=== PATIENT | female | born 1970 | race Caucasian/White ===

== ENCOUNTER 2016-08-29 14:00 | Inpatient (IN) | payer BC, OTHER ==
[~2016-08-29] VITALS: Ht 165.1 cm; Wt 69.0 kg
--- NOTE | ~2016-08-29 | DS ---
PATIENT'S NAME: ANNABELLE CASTELLANOS [facility] AGE: 45 Y [address] ROOM: [address] [address] LOCATION: [facility] [place] ADMIT DATE: 08/29/2016 Discharge Summary DISCHARGE DATE: 09/04/2016 FAMILY PHYSICIAN: Anna Mcclure ATTENDING PHYSICIAN: Maday Harrison FINAL DIAGNOSES: 1. Hypercalcemia. 2. Acute kidney injury. 3. Hyponatremia. 4. Elevated blood pressure. 5. Anxiety and depression. CONSULTANTS ON THE CASE: Dr. Barron with Nephrology. PROCEDURES: The patient had a renal biopsy done by Dr. Mcgarry on 09/03/2016. HOSPITAL COURSE: Please see details of admission in H and P by Dr. Harrison. Briefly, the patient was admitted with hypercalcemia and acute kidney injury. She was started on IV fluids with normal saline. Serum protein electrophoresis and urine protein electrophoresis were ordered. The patient was checked for her ionized calcium level and vitamin D level. She was given calcitonin 4 units/kg subcu on admission and 1 dose of Solu-Medrol. Telemetry was placed secondary to the hypercalcemia. Dr. Barron was able to see the patient on the 30, checked parathyroid hormone, and Johan levels. CT of the chest was done without contrast, and renals were ordered daily. On hospital day #2, the patient was feeling a little bit better. She was able to eat some breakfast, but did have significant nausea. Phenergan was utilized for this. Calcium level is down to 12.2 and down to 11.5 on subsequent days. IV fluids were changed to decrease. The patient did have some loose stools and C. diff was checked, which was negative. Potassium was low and was replaced efficiently. Dr. Barron did order a CT-guided renal biopsy on the 2nd, this was able to be done on the 3rd. The patient was given amlodipine for elevated blood pressures and they did show positive results. On the 3rd, we gave her more calcitonin and stimulated her bowels. She did have good response. Calcium level jumped back up to 13.1, but then on the day of discharge it was back down to 11.7. Urine protein electrophoresis showed tubular type proteinuria. No Bence-Soares protein. The patient's magnesium was replaced and it was felt that the patient could safely be discharged with followup with Dr. Barron pending the biopsy results, which subsequently needed sending to [place]. The patient was able to verbalize understanding the discharge instructions and was agreeable to the condition. DIAGNOSTICS: CT scan of the chest without contrast was normal. Retroperitoneal ultrasound on 09/01/2015 was also normal. Single view of the PATIENT'S NAME: ANNABELLE CASTELLANOS [facility] AGE: 45 Y [address] ROOM: [address] [address] LOCATION: [facility] [place] ADMIT DATE: 08/29/2016 Discharge Summary DISCHARGE DATE: 09/04/2016 FAMILY PHYSICIAN: Anna Mcclure ATTENDING PHYSICIAN: Maday Harrison A chest was unremarkable. LABORATORY DATA: The patient's ionized calcium on 08/29 was 8.1. On admission sodium was 145, potassium 3.4, chloride 107, bicarb 29, glucose 115, calcium 14.2, BUN 41, creatinine 3.4. TSH and free T4 were within normal limits. The patient's calcium trended down to 11.3, back up to 13.1, and again down to 11.7 on discharge. Creatinine was 3.4 on the day of admission and trended down to 2.6 on the day of discharge. Quantitative hCG was negative. On admission, white blood cell count was 5.8, hemoglobin 10.9, hematocrit 33.2, platelets 258. These values remained stable throughout her stay. Urinalysis was within normal limits. Urine sodium was 93, urine calcium was 14, urine urea was 165, and urine creatinine was 17. Urine culture was negative at 2 days. DISCHARGE INSTRUCTIONS: The patient is discharged home. Diet: As tolerated. Activity: No heavy lifting greater than 5 pounds for 7 days. The patient will follow up with Dr. Barron in his office to make a followup appointment once the renal biopsy is back. The patient will follow up with Anna Cruz in 5 days that puts it on Sunday 09/10 at 11:15 a.m. DISCHARGE MEDICATIONS: 1. Norvasc 2.5 mg p.o. daily. 2. Colace 100 mg twice daily. 3. Lamictal 300 mg at bedtime. 4. Zyprexa 5 mg at bedtime. 5. Inderal 20 mg at bedtime. 6. Tylenol 1000 mg every 6 hours as needed. 7. Effexor 150 mg everyday. 8. Zantac 150 mg daily as needed. 9. Zofran 4 mg every 4 hours as needed. 10. Protonix 40 mg daily. We do appreciate participating in this patient's care. Thank you very much for the ability to serve her while hospitalized at [facility]. Time spent coordinating details of discharge was 29 minutes of which was spent coordinating with consulting physicians, care management, and completion of medication reconciliation and education to the patient and family. LIAM LEDESMA FOR MADAY HARRISON MD EBONY/modl PATIENT'S NAME: ANNABELLE CASTELLANOS [facility] AGE: 45 Y [address] ROOM: [place] [address] LOCATION: [facility] [place] ADMIT DATE: 08/29/2016 Discharge Summary DISCHARGE DATE: 09/04/2016 FAMILY PHYSICIAN: Anna Mcclure ATTENDING PHYSICIAN: Maday Harrison /[id number] d: 09/05/16820 t: 09/16/16 1947, DISCHARGE SUMMARY
--- NOTE | ~2016-08-29 | CON ---
PATIENT'S NAME: ANNABELLE CASTELLANOS [place] AGE: 45 Y [address] ROOM: [address] [address] LOCATION: [facility] [place] ADMIT DATE: 08/29/2016 Consultation DISCHARGE DATE: FAMILY PHYSICIAN: Anna Mcclure ATTENDING PHYSICIAN: MADAY LOO DATE OF CONSULTATION: 08/30/2016 REFERRING PHYSICIAN: Jacques Barron REQUESTING PHYSICIAN: HospitalistMaday MD. REASON FOR CONSULTATION: Hypercalcemia and acute kidney injury. HISTORY OF PRESENT ILLNESS: The patient is a 45-year-old white female with a history of only anxiety, depression, and nephrolithiasis. She was admitted to the hospital because of abnormal labs. The patient was noted to have a creatinine up to 3.2 and a calcium of 18.8 at the physician's office. She has not been feeling well for the last 7 days. She has been tired. She has nausea, vomiting, and constipation. She does have a history of constipation off and on. She also thinks she has lost 5-10 pounds. She was thirsty, she was drinking about 90 ounces of liquid in 24 hours. On admission to the hospital, she received intravenous volume as well as calcitonin. I have been asked to see her because she continues to have elevated calcium and creatinine. REVIEW OF SYSTEMS: GENERAL: She denies any fever, chills, or rigors. She is tired and she lost about 5-10 pounds in the last one week. HEENT: Denies any sore throat. She has dry lips. HEART: Denies any chest pain, dyspnea on exertion. RESPIRATORY: Denies any cough or sputum production. GI: Poor appetite and constipation. : Denies any dysuria. Has a history of nephrolithiasis. MUSCULOSKELETAL: Denies any joint pain or swelling. SKIN: Denies any rash or pruritus. IMMUNOLOGIC: Denies any allergies or hay fever. LYMPHATICS: Denies any lymph node enlargement. HEMATOLOGIC: Denies any easy bruising. ENDOCRINE: Denies any heat or cold intolerance. PSYCHIATRY: Denies any sadness, crying spells, poor concentration, or panic attack. PAST MEDICAL HISTORY: PATIENT'S NAME: ANNABELLE CASTELLANOS [place] AGE: 45 Y [address] ROOM: [address] [address] LOCATION: [facility] [place] ADMIT DATE: 08/29/2016 Consultation DISCHARGE DATE: FAMILY PHYSICIAN: Anna Mcclure ATTENDING PHYSICIAN: MADAY LOO Anxiety, depression, and nephrolithiasis. PAST SURGICAL HISTORY: Hysterectomy, cholecystectomy, history of shockwave lithotripsy in April 2016. SOCIAL HISTORY: She is . 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 She lives by herself in [place]. She has no history of tobacco use. She has used cannabis 2-3 times a week. She does not drink any alcohol. FAMILY HISTORY: Strong family history of malignancy, mother had breast cancer. Grandfather had lung cancer. Her brother committed suicide. ALLERGIES: NO KNOWN DRUG ALLERGIES. PRESENT MEDICATIONS: Home medications did include, 1. Tylenol p.r.n. 2. Lamictal 300 mg at bedtime. 3. Zyprexa 5 mg at bedtime. 4. Zofran 4 mg q.4 hours as needed. 5. Propranolol 20 mg at bedtime. 6. Zantac 150 mg as needed. 7. Effexor 150 mg in the morning. PHYSICAL EXAMINATION: GENERAL APPEARANCE: A 45-year-old, well-built white female, sitting up in the hospital bed, not in acute distress. VITAL SIGNS: Temperature 98.4, pulse 93, systolic blood pressure of 147, diastolic 84, respiratory rate of 18. HEENT: Head is normocephalic. Pupils are round and equal. Normal eyelids and conjunctivae. Oral cavity, clear. Loss of tooth. NECK: Trachea is central. No thyromegaly. No bruit. HEART: Sounds are audible in all the areas without any gallop or murmur. There is no peripheral rub. Pulses regular in rhythm. LUNGS: Bilaterally clear to auscultate. No intercostal retraction. ABDOMEN: Soft, nontender. Could not palpate the liver or spleen. EXTREMITIES: She has no clubbing or cyanosis. SKIN: No sign of vasculitis. LYMPHATICS: I did not examine lymphatics. HIGHER PSYCHIATRIC FUNCTIONS: She has normal speech and memory. PATIENT'S NAME: ANNABELLE CASTELLANOS [place] AGE: 45 Y [address] ROOM: [id number] [place], [place] [address] LOCATION: [facility] [place] ADMIT DATE: 08/29/2016 Consultation DISCHARGE DATE: FAMILY PHYSICIAN: Anna Mcclure ATTENDING PHYSICIAN: MADAY LOO LABORATORY DATA: Hemoglobin 10.6, hematocrit 31.9, platelet count 259, WBC 5.1, glucose 143, BUN 41, creatinine 3.0. Sodium 146, potassium 3.9, chloride 111, bicarb 27, calcium 12.2, albumin 2.9. Estimated GFR 17 mL/minute. ASSESSMENT: 1. Hypercalcemia, etiology unclear, but we need to rule out possibilities of malignancy. Chest x-ray does not show any nodules. She had a CT scan of the abdomen and pelvis last year with contrast and there was no mass in that. The patient has not had a colonoscopy, but she reports that she had a mammogram last year. She does have family history of breast cancer in her mother. The patient was not taking Tums. She does take a multivitamin. Her calcium level of 18.8 was not likely due to dehydration. 2. Acute kidney injury. Creatinine went up to 3+, now it is down to 3.0. Most likely this is because of hypercalcemia and volume loss with excessive diuresis. Urinalysis does not show any proteinuria. Her vitamin D level is pending. PTH is within normal limits. Her constipation and nephrolithiasis probably also related to her hypercalcemia. She possibly was also having hypercalciuria. 3. Anxiety and depression. 4. Nephrolithiasis. PLAN: I agree with IV volume, also agree with calcitonin. The patient does have nausea probably from calcitonin and she will need Zofran p.r.n. Calcitonin does not feel to be waxed within the next 48 hours. I will avoid any alendronate at this time. We will order a PTHRP. We will look further report for her previous mammograms. Serum protein and immunoelectrophoresis has been ordered. I will check an KESHIA level and will follow her renal function closely. M MD ANOOP GAO/sangita /[id number] CC: LIAM Valverde d: 08/30/16 1429 t: 09/19/16 1547, CONSULTATION REPORT
--- NOTE | ~2016-08-29 | HP ---
PATIENT'S NAME: ANNABELLE CASTELLANOS [facility] AGE: 45 Y [address] ROOM: [address] [address] LOCATION: [facility] [place] ADMIT DATE: 08/29/2016 History & Physical DISCHARGE DATE: FAMILY PHYSICIAN: Anna Mcclure ATTENDING PHYSICIAN: MADAY HARRISON DATE OF SERVICE: 08/29/2016 CHIEF COMPLAINT: Hypercalcemia and acute kidney injury. HISTORY OF PRESENT ILLNESS: This is a 45-year-old female, who has been experiencing lightheadedness, dizziness, nausea, vomiting, and constipation over the last 6 days. She also associates a weight loss of approximately 5-10 pounds as well as some hot flashes, which she has not had since her hysterectomy. She has taken Tylenol without relief. She has had poor oral intake, both with liquid and nutritionally. She went to her primary care provider's office today, where she was found to have a creatinine of 3.2 and a calcium of 18.8. Her only past medical history includes anxiety and depression, which is well controlled on her current medications. She does use cannabis 2-3 times a week. She denies any syncopal-like episodes. She denies any visual changes. She denies any chest pain, palpitations, or history of heart murmurs. She denies any shortness of breath or cough or history of any chronic lung disease. She does complain of the nausea and vomiting, but is constipated and has not had a bowel movement for the last few days. She denies any melena in her stool. She denies any urinary complaints such as frequency, burning, or painfulness upon urination. She has not had her period since having a hysterectomy. She denies any extremity pain or weakness on either side of her body. She denies any numbness or tingling or sensory changes. REVIEW OF SYSTEMS: A 10-point review of systems was completed and is negative other than mentioned above in the HPI. PAST MEDICAL HISTORY: Anxiety and depression. PAST SURGICAL HISTORY: 1. Hysterectomy. 2. Cholecystectomy. 3. History of renal stones, requiring shockwave lithotripsy on 05/01/2016. SOCIAL HISTORY: PATIENT'S NAME: ANNABELLE CASTELLANOS [facility] AGE: 45 Y [address] ROOM: [address] [place], [place] [address] LOCATION: [facility] [place] ADMIT DATE: 08/29/2016 History & Physical DISCHARGE DATE: FAMILY PHYSICIAN: Anna Mcclure ATTENDING PHYSICIAN: MADAY HARRISON The patient is . She has 3 children, all of whom are living and healthy. She does live at home by herself with her dog and her cat. She does work for [employer], which is [employer] for last 3 years. She does admit to cannabis use 2-3 times a week. She denies any other illicit drug use. She denies any smoking history. She denies any alcohol use. FAMILY MEDICAL HISTORY: Her father had a stroke and is still living. Her mother had breast cancer and is still living. She had a brother, who committed suicide. Otherwise, reviewed and deemed noncontributory. ALLERGIES: PENICILLIN, UNKNOWN REACTION. MEDICATIONS: Home medication list reviewed: 1. Tylenol 1000 mg p.o. every 6 hours as needed for pain or fever. 2. Lamictal 300 mg p.o. every night at bedtime. 3. Zyprexa 5 mg p.o. every night at bedtime. 4. Zofran 4 mg p.o. every 4 hours as needed. 5. Propranolol 20 mg p.o. every night at bedtime. 6. Zantac 150 mg p.o. every day as needed. 7. Effexor 150 mg p.o. every morning. PHYSICAL EXAMINATION: VITAL SIGNS: Most recent vital signs show temperature of 98.2 orally, a pulse of 90, respiratory rate of 18, blood pressure 165/92, and oxygen of 94% on room air. Her weight is 70.10 kg with a BMI of 25.7. She is 5 feet 5 inches. GENERAL: This is a 45-year-old female, who looks and appears her stated age. She is a . She is calmly resting in bed and is cooperative with examination. HEENT: Her head is normocephalic and atraumatic. Eyes: Extraocular movements are intact. Her pupils are equal, round, and reactive to light and accommodation at 3+. She has no maxillary or frontal tenderness. Oropharynx is visualized and appears to be dry mucous membranes. She has no redness in the posterior pharynx or drainage. NECK: Supple. I do not note any thyromegaly or lymphadenopathy. CHEST: Shows equal rise and symmetric expansion. Her lungs are clear throughout all nava. There is no wheeze or adventitious sounds noted. HEART: Regular rate and rhythm without any gallop or murmur. S1, S2 present. No murmurs noted. No pedal edema. Good 2+ pulses bilaterally and equal. ABDOMEN: Soft, round, nontender, and nondistended. No organomegaly appreciated. Bowel sounds heard through all four present. : Deferred. PATIENT'S NAME: ANNABELLE CASTELLANOS [facility] AGE: 45 Y [address] ROOM: [place] [address] LOCATION: [facility] [place] ADMIT DATE: 08/29/2016 History & Physical DISCHARGE DATE: FAMILY PHYSICIAN: Anna Mcclure ATTENDING PHYSICIAN: MADAY HARRISON EXTREMITIES: Equal in size. She has soft calves. She is able to move all 4 extremities without any difficulty. NEUROLOGIC: She is hyperreflexic at 3+ bilaterally in both her upper extremities and lower extremities. LABORATORY DATA: Laboratory review from outside facility shows calcium 18.8, a BUN of 39, a creatinine of 3.2, and a GFR of 16. Her sodium was 139, potassium of 4.0, chloride of 97, CO2 of 34, anion gap of 8. TSH is 0.815. ASSESSMENT AND PLAN: Again, this is a 45-year-old female, who has: 1. Acute kidney injury, partially secondary to poor oral intake. We will start IV fluids with a bolus and fluids to follow and repeat labs to confirm and carefully consider renal ultrasound. 2. Hypercalcemia. We will get further labs to confirm the potential diagnosis to include a parathyroid hormone and vitamin D, 25-OH, TSH, free T4, and start IV fluids for correction and carefully consider calcitonin. 3. Hyperreflexia, secondary to hypercalcemia. 4. Anxiety and depression, well controlled on her home medication regimen. We would continue use of her Effexor, Lamictal, and Zyprexa. 5. Cannabis use. Cessation education was provided to the patient. 6. DVT prophylaxis. To mobilize and use pneumatic compression devices. 7. Full-code status. Above line of management was done in collaboration with further recommendations forthcoming from Dr. Maday Harrison. The condition of the patient is stable. All questions were answered with statements of understanding. CHANTAL PILLAI APRN, APRN FOR MD JORGE MOORE/modl /[id number] D: 55 HISTORY & PHYSICAL
[~2016-08-29 14:00] MED LIST: EFFEXOR XR150 MG PO; ELMIRON100 MG PO; INDERAL20 MG PO; LAMICTAL150 MG PO; NORCO 5-325 TA1 EACH PO; ZANTAC (NON-FO150 MG PO; ZOVIA 1-35E TA1 EACH PO; ZYPREXA5 MG PO
[2016-08-29] MEDS ORDERED: ZOFRAN4 MG PO (14:51)
[2016-08-29] MEDS ORDERED: TYLENOL EXTRA500 MG PO (14:52)
--- NOTE | 2016-08-29 15:23 | NUR ---
Pt is 45 y/o female admit for acute kidney injury for hospitalist. Pt alert and oriented x3. Resides at home by herself. Hx migraines,gerd,heartburn, ulcer,hayfever,sinus problems,kidney stones,frequent UTI,depression,anxiety, bipolar,smokes pot at least 3x's/week. Pt has had a headache recently and vertigo for the past week. She states she just didn't feel good. She drinks large amts of water and states she voids frequently. She saw her this am and had lab and was then called later to check in to hospital.
--- NOTE | 2016-08-29 18:54 | NUR ---
Significant event: Patient is alert and oriented. VSS. ON room air. IV to left forearm, with fluids running. Is independent in ambulation. Regular diet. Renal ultrasound tomarrow. Complains of some midepigastric pain. Cooperative with cares.
[2016-08-29 20:21] LABS: BASOPHIL % 0.2 %; HEMATOCRIT 33.2 % (33.0-46.0); HEMOGLOBIN 10.9 g/dL (10.0-15.0); IMMATURE GRANULOCYTE % 0.2 %; LYMPHOCYTE % 34.8 %; MCH 28.8 pg (27.0-34.0); MCHC 32.8 gm/dL (32.0-36.5); MCV 87.6 fl (83.0-98.0); MONOCYTE # 0.9 K/uL (0.0-1.0); MONOCYTE % 15.2 %; MPV 8.8 fl (9.4-12.4); NEUTROPHIL # (ANC) 2.9 K/uL (1.8-7.8); NEUTROPHIL % 49.6 %; NRBC % 0 /100WBC (0-0.00); PLATELET COUNT 258 K/uL (150-450); RBC 3.79 M/uL (3.50-5.50); RDW-CV 12.8 % (11.9-14.6); WBC 5.8 K/uL (4.0-11.0)
[2016-08-29 20:44] LABS: ALBUMIN 2.9 gm/dL (3.5-5.0); ANION GAP 12.4 (10.0-19.0); CREATININE 3.4 mg/dL (0.5-1.1); POTASSIUM 3.4 mMol/L (3.7-5.1); TOTAL BILIRUBIN 0.3 mg/dL (0.0-1.5); TOTAL PROTEIN 6.1 g/dL (6.0-8.4)
[2016-08-29 20:56] LABS: CALCIUM 14.2 mg/dL (8.5-10.5)
[2016-08-30 00:30] LABS: BILIRUBIN URINE NEGATIVE (NEGATIVE); BLOOD URINE NEGATIVE /UL (NEGATIVE); COLOR URINE COLORLESS (YELLOW); GLUCOSE URINE NEGATIVE (NEGATIVE); KETONE URINE NEGATIVE (NEGATIVE); LEUKOCYTES URINE NEGATIVE /UL (NEGATIVE); NITRITE URINE NEGATIVE (NEGATIVE); PROTEIN URINE NEGATIVE (NEGATIVE); SPEC GRAVITY URINE 1.015 (1.003-1.035); TURBIDITY URINE CLEAR (CLEAR); UROBILINOGEN URINE NORMAL (NORMAL)
--- NOTE | 2016-08-30 03:45 | NUR ---
SIGNIFICANT EVENT: Patient alert &oriented. Hypertensive (140's over 70's to 80's), other VSS on RA. Ate 50% of dinner but had about 800 emesis at approx 2030, no other emesis this shift. Zofran x1 at approx 1930. Calcium was 14.2 at 2000 draw. Calcitonin given x1. UA collected. Ad kym in room, does call for assist with unplugging IV. PIV to L)FA infusing NS at 150, had 2000 bolus prior to that. EKG shows NSR. NPO at [place] for Renal ultrasound to be done this morning. Pleasant and cooperative with cares.
[2016-08-30 05:24] LABS: HEMATOCRIT 31.9 % (33.0-46.0); HEMOGLOBIN 10.6 g/dL (10.0-15.0); IMMATURE GRANULOCYTE % 0.6 %; LYMPHOCYTE % 19.8 %; MCH 28.6 pg (27.0-34.0); MCHC 33.2 gm/dL (32.0-36.5); MCV 86.2 fl (83.0-98.0); MONOCYTE # 0.1 K/uL (0.0-1.0); MONOCYTE % 2.5 %; MPV 8.7 fl (9.4-12.4); NEUTROPHIL # (ANC) 3.9 K/uL (1.8-7.8); NEUTROPHIL % 77.1 %; NRBC % 0 /100WBC (0-0.00); PLATELET COUNT 259 K/uL (150-450); RDW-CV 12.7 % (11.9-14.6); WBC 5.1 K/uL (4.0-11.0)
[2016-08-30 05:44] LABS: ALBUMIN 2.9 gm/dL (3.5-5.0); POTASSIUM 3.9 mMol/L (3.7-5.1); TOTAL BILIRUBIN 0.3 mg/dL (0.0-1.5); TOTAL PROTEIN 6.2 g/dL (6.0-8.4)
[2016-08-30 05:45] LABS: ANION GAP 11.9 (10.0-19.0); CALCIUM 12.2 mg/dL (8.5-10.5)
--- NOTE | 2016-08-30 14:17 | NUR ---
Introduced self and care management services to patient. Lives in [place] alone, independent in everything at home. Denies concerns about going home on discharge, denies needs. Will follow.
--- NOTE | 2016-08-30 19:26 | NUR ---
Significant Event: Patient alert and oriented. Up to the bathroom with standby assist to void and patient states having 3 BM's for the shift. Renal US and CT scan of chest done. Patient states not having much of an appetite and c/o nausea at times. Zofran 4 mg orally given x 2 doses with the last at 1753 and Phenergan 12.5 mg orally given at 1433 with minimal relief. Tylenol 1000 mg given at 1622 for c/o a headache. Calcium level down to 12.2, Creatinine 3.0. Follow up:
--- NOTE | 2016-08-31 05:13 | NUR ---
Significant Event: PATIENT IS ALERT AND ORIENTED X4 AMBULATES INDEPENDENTLY IN ROOM AND HALLS. NO COMPLAINTS OF PAIN OR DISCOMFORT THIS SHIFT. DIET IS REGULAR. VITAL SIGNS WNL ON RA. PIV TO L) FA INFUSING NS AT 150. STATES HEADACHE HAS RESOLVED AND PATIENTS STATES SHE FEEL MUCH BETTER. Follow up:
[2016-08-31 05:46] LABS: HEMATOCRIT 30.7 % (33.0-46.0); HEMOGLOBIN 9.9 g/dL (10.0-15.0); IMMATURE GRANULOCYTE % 0.2 %; LYMPHOCYTE # 2.7 K/uL (0.8-4.0); LYMPHOCYTE % 45.3 %; MCH 28.6 pg (27.0-34.0); MCHC 32.2 gm/dL (32.0-36.5); MCV 88.7 fl (83.0-98.0); MONOCYTE # 0.7 K/uL (0.0-1.0); MONOCYTE % 11.6 %; MPV 9.2 fl (9.4-12.4); NEUTROPHIL # (ANC) 2.6 K/uL (1.8-7.8); NEUTROPHIL % 42.9 %; NRBC % 0 /100WBC (0-0.00); PLATELET COUNT 222 K/uL (150-450); RBC 3.46 M/uL (3.50-5.50)
[2016-08-31 05:51] LABS: ALBUMIN 2.7 gm/dL (3.5-5.0); CREATININE 2.7 mg/dL (0.5-1.1); PHOSPHORUS 2.8 mg/dL (2.5-4.9); POTASSIUM 3.6 mMol/L (3.7-5.1)
[2016-08-31 05:56] LABS: ANION GAP 10.6 (10.0-19.0); CALCIUM 11.5 mg/dL (8.5-10.5)
--- NOTE | 2016-08-31 13:41 | NUR ---
I have examined the student charting and find it acceptable. Soni JONES
--- NOTE | 2016-08-31 16:25 | NUR ---
D: PATIENT VITAL SIGNS STABLE PATIENT AFEBRILE. PATIENT DID COMPLAIN OF SOME STOMACH PAINS, CRAMPS, AND DIARRHEA; STATES "WHEN I EAT CERTAIN FOODS THIS OCCURS". NOTIFIED HOSPITALIST TEAM AND RECEIVED AN ORDER FOR C-DIFF. SAMPLE NOT COLLECTED ORDER WAS RECEIVED AFTER 5 LOOSE STOOLS. PATIENT ENCOURAGED TO GET UP AND AMBULATE IN HALLS.
--- NOTE | 2016-09-01 04:44 | NUR ---
Significant Event: Sleeping for long periods tonight. Afebrile, all other VSS. Drinking and voiding well, 3,000ml out this shift. No stools this shift, still need stool for C-Diff. Tylenol given x1 at 2210 for c/o of headache with relief noted upon reassessment. Up in room and halls independently. Pleasant and cooperative with cares. Follow up:
[2016-09-01 06:16] LABS: ALBUMIN 2.6 gm/dL (3.5-5.0); CREATININE 2.3 mg/dL (0.5-1.1); PHOSPHORUS 3.2 mg/dL (2.5-4.9); POTASSIUM 3.5 mMol/L (3.7-5.1)
[2016-09-01 06:17] LABS: ANION GAP 13.5 (10.0-19.0); CALCIUM 11.3 mg/dL (8.5-10.5)
[2016-09-01 16:43] LABS: ANGIOTENSIN-CONVERTING ENZYME 155 U/L (4-60)
--- NOTE | 2016-09-01 18:30 | NUR ---
Significant Event:Had 3200ml urine out, 1120 po in, and 853 IV in. Had tylenol at 1221 for MALHOTRA with relief. Reports she was a little dizzy when she was up with the MALHOTRA. BP was 151/86. No stools today. Follow up:Need stool specimen if diarrhea.
--- NOTE | 2016-09-02 04:40 | NUR ---
Significant Event: Cares from 1008-1754. Afebrile, all other VSS. Denies pain. Drinking well and voiding large amounts. Up in room and halls ad-kym. PIV to L) anterior forearm patent and infusing without complication. Pleasant and cooperative with cares. Follow up:
--- NOTE | 2016-09-02 04:52 | NUR ---
Significant Event: Assumed cares at 0045. Up ad kym to bathroom. Strict I&O. Cont on IVF. Drinking well. Follow up:
[2016-09-02 06:12] LABS: ALBUMIN 2.7 gm/dL (3.5-5.0); ANION GAP 11.3 (10.0-19.0); CREATININE 2.4 mg/dL (0.5-1.1); PHOSPHORUS 3.4 mg/dL (2.5-4.9); POTASSIUM 3.3 mMol/L (3.7-5.1)
[2016-09-02 06:14] LABS: CALCIUM 12.1 mg/dL (8.5-10.5)
--- NOTE | 2016-09-02 10:39 | NUR ---
A - PT SCREENED D/T LOS. ARTEM. LABS: K+ 3.3, GLU 120, BUN/CR 25/2.4, ALB 2.7. MEDS: D5W, NAUSEA, PEPCID. HT: 65" WT: 154# BMI: 25.7. EST NEEDS: 6560-5188 KCAL (20-25 KCAL/KG), 56-70 G PRO (0.8-1 G/KG), 1750 ML FLUID (25 ML/KG). DIET: REG. INTAKE: MOSTLY 50-100% D - NO NUTRITION RELATED DIAGNOSIS IDENTIFIED AT THIS TIME. I - GOAL FOR INTAKE TO REMAIN 50-100% FOR DURATION OF STAY. M/E - WILL ASSIST NEEDED.
--- NOTE | 2016-09-02 16:50 | NUR ---
Significant Event: Patient is alert and oriented x3. VSS and on RA- BP elevated- 150-160's. New IV started in the R)FA, the one in the left arm infiltrated. Fluids infusing. Tolerating a regular diet. Tele on, no calls. Will have a CT guided biopsy of her kidney tomorrow in the AM. New labs ordered. KCL 40meq given x1 today. Post op biopsy orders on the chart for tomorrow. Strict I/O. Cooperative with cares. Barajas this morning. UA collected.
[2016-09-02 17:18] LABS: PROTIME 10.3 SECONDS (9.6-11.1)
--- NOTE | 2016-09-03 04:32 | NUR ---
Significant Event: Pt up ad kym in room and ambulated in peraza x 1 this shift. Tele on, no calls. BP's elevated for pt and she was concerned and talked to MD about this, Norvasc ordered and will start in the morning, education provided please have pt sign and place on chart when completed. Accurate I&O's. NPO for kidney biopsy this morning. Checklist inprogress and on chart. Follow up: Cont to monitor.
[2016-09-03 05:57] LABS: BASOPHIL % 0.2 %; HEMATOCRIT 33.9 % (33.0-46.0); HEMOGLOBIN 11.5 g/dL (10.0-15.0); IMMATURE GRANULOCYTE % 0.2 %; LYMPHOCYTE # 1.8 K/uL (0.8-4.0); LYMPHOCYTE % 34.5 %; MCH 28.7 pg (27.0-34.0); MCHC 33.9 gm/dL (32.0-36.5); MCV 84.5 fl (83.0-98.0); MONOCYTE # 0.5 K/uL (0.0-1.0); MONOCYTE % 9.2 %; MPV 8.7 fl (9.4-12.4); NEUTROPHIL % 55.9 %; NRBC % 0 /100WBC (0-0.00); PLATELET COUNT 251 K/uL (150-450); RBC 4.01 M/uL (3.50-5.50); RDW-CV 13.1 % (11.9-14.6); WBC 5.3 K/uL (4.0-11.0)
[2016-09-03 06:16] LABS: ALBUMIN 2.8 gm/dL (3.5-5.0); ANION GAP 11.5 (10.0-19.0); CREATININE 2.5 mg/dL (0.5-1.1); POTASSIUM 3.5 mMol/L (3.7-5.1)
[2016-09-03 06:26] LABS: CALCIUM 13.1 mg/dL (8.5-10.5); TOTAL BILIRUBIN 0.2 mg/dL (0.0-1.5)
[2016-09-03 13:55] LABS: PROTIME 10.3 SECONDS (9.6-11.1)
--- NOTE | 2016-09-03 20:04 | NUR ---
Significant Event:kidney biospy late today, voiding well, po K+ given after patient ate some bites of food, 1739 IV, 2400 +1 void in Radiology, Tylenol given for headache, afebrile, BP improving-George started this am Follow up:
--- NOTE | 2016-09-04 04:56 | NUR ---
Significant Event: AAOX4. REGULAR DIET. PIV SL. INDEPENDENT WITH ACTIVITIES. ON TELE WITH 1 CALL AT 0317; POSSIBLE ST ELEVATION. EKG OBTAINED; UNREMARKABLE. PEPCID GIVEN X1 AT; 0220. AMB IN [place] X1 THIS SHIFT; TOLERATED VERY WELL. PT DENIED PAIN THROUGHOUT SHIFT. LS CLEAR. BS PRESENT. 950ML OUT THIS SHIFT. 800 ML IN PO. NO BM, BUT RELEASING FLATUS. Follow up:
[2016-09-04 05:42] LABS: BASOPHIL % 0.2 %; HEMOGLOBIN 11.9 g/dL (10.0-15.0); IMMATURE GRANULOCYTE % 0.2 %; LYMPHOCYTE # 2.1 K/uL (0.8-4.0); LYMPHOCYTE % 36.1 %; MCH 28.3 pg (27.0-34.0); MCHC 33.1 gm/dL (32.0-36.5); MCV 85.7 fl (83.0-98.0); MONOCYTE # 0.7 K/uL (0.0-1.0); MONOCYTE % 11.7 %; MPV 8.7 fl (9.4-12.4); NEUTROPHIL % 51.8 %; NRBC % 0 /100WBC (0-0.00); PLATELET COUNT 264 K/uL (150-450); RDW-CV 13.3 % (11.9-14.6); WBC 5.7 K/uL (4.0-11.0)
[2016-09-04 05:56] LABS: ALBUMIN 3.1 gm/dL (3.5-5.0); CREATININE 2.6 mg/dL (0.5-1.1); PHOSPHORUS 4.5 mg/dL (2.5-4.9)
[2016-09-04 05:58] LABS: CALCIUM 11.7 mg/dL (8.5-10.5)
[2016-09-04] MEDS ORDERED: PROTONIX40 MG PO (12:00)
[2016-09-04] MEDS ORDERED: NORVASC2.5 MG PO (12:02)
[2016-09-04] MEDS ORDERED: COLACE100 MG PO (12:02)
--- NOTE | 2016-09-04 13:29 | NUR ---
D: Orders received for the patient to be discharged today to home after 2 grams IV magnesium sulfate has been given. Patient discontinued PIV so new IV needed to be started prior to getting Magnesium sulfate. I: Dismissal instructions were prepared and reviewed with the patient virtually. The following information was discussed including Michelle teaching provided: Discharge instructions for Hypercalcemia, Acute Kidney Injury and Hypernatremia. Also discussed all new medication and prescriptions: Controlling High blood pressure, Amlodipine, taking Amlodipine, colace, Protonix and preventing DVT. Reviewed new prescriptions with the patient and which one is over the counter. R; The patient verbalized understanding of the dismissal education at the time of teaching with no further questions. P: The above information was shared with the primary nurse, charge nurse and the nurses aide that the dismissal education was complete. The patient is ready for discharge after the magnesium is giving. The patient stated she would be driving herself home today.
--- NOTE | 2016-09-04 18:00 | NUR ---
Phone call from Ana on [employer] stating patient has concerns about being able to afford healthier foods since the doctor is encouraging her to change her diet and eat less processed foods. She states she is on a limited income and eats mostly processed foods or does not eat at all. I gave her information on the local food pantries in the [facility]. I also gave her information on the [facility], [facility] and the [facility] that offer other forms of assistance to families in need. She was appreciative of these resources. Patient is to discharge to home today.
== END 2016-09-04 16:15 | disposition disaster alternative care site (69) | DRG 683 ==
LOC: GMSU 14:15
PROVIDERS: Internal Medicine; Internal Medicine Nephrology; Nurse Practitioner Family; Radiology Diagnostic Radiology; ADMIT Internal Medicine
DX: N17.9 Acute kidney failure, unspecified (principal); E87.0 Hyperosmolality and hypernatremia; E87.1 Hypo-osmolality and hyponatremia; E83.52 Hypercalcemia; K59.00 Constipation, unspecified; F41.9 Anxiety disorder, unspecified; F32.9 Major depressive disorder, single episode, unspecified; F12.90 Cannabis use, unspecified, uncomplicated; Z87.442 Personal history of urinary calculi; Z90.49 Acquired absence of other specified parts of digestive tract; Z90.710 Acquired absence of both cervix and uterus
CPT/HCPCS: J0630; J2550; J2930; J3475; J7030; J7060; Q0162

== ENCOUNTER → 2016-09-12 | Outpatient (CLI) | payer BC, SELFPAY ==
[~2016-09-12] MED LIST changes: +COLACE100 MG PO; +NORVASC2.5 MG PO; +PROTONIX40 MG PO; +TYLENOL EXTRA500 MG PO; +ZOFRAN4 MG PO
== END | disposition disaster alternative care site (69) ==
LOC: GRAD 08:14
DX: E83.52 Hypercalcemia (principal); E67.3 Hypervitaminosis D; N20.0 Calculus of kidney; Z90.49 Acquired absence of other specified parts of digestive tract; Z90.710 Acquired absence of both cervix and uterus